=== PATIENT | female | born 1995 ===

== ENCOUNTER → 2019-05-26 | Outpatient (CLI) | payer OTHER | END | disposition home or self-care (01) | LOC: PRENATAL 10:00 | DX: O28.1 Abnormal biochemical finding on antenatal screening of mother (principal) ==

== ENCOUNTER 2019-06-07 14:20 | Outpatient (CLI) | payer OTHER | END 2019-06-07 15:30 | disposition home or self-care (01) | LOC: PRENATAL 14:20 | DX: O28.1 Abnormal biochemical finding on antenatal screening of mother (principal); Z34.02 Encounter for supervision of normal first pregnancy, second trimester ==

== ENCOUNTER 2019-09-07 12:22 | Inpatient (IN) | payer OTHER ==
[~2019-09-07] VITALS: Ht 162.6 cm; Wt 90.7 kg
[2019-09-08] MEDS ORDERED: PRENATAL TABLE1 EAC1 PO (02:29)
== END 2019-09-10 15:26 | disposition home or self-care (01) | DRG 807 ==
LOC: OBS/DEL 12:22 → LDR 09-08 02:20 → OB/GYN 09-08 02:20
PROVIDERS: ADMIT Obstetrics & Gynecology Obstetrics
PROC: 10E0XZZ Delivery of Products of Conception, External Approach (ICD-10-PCS; principal; 2019-09-08)
PROC: 0W8NXZZ Division of Female Perineum, External Approach (ICD-10-PCS; 2019-09-08)
PROC: 3E033VJ Introduction of Other Hormone into Peripheral Vein, Percutaneous Approach (ICD-10-PCS; 2019-09-08)
PROC: 4A1HXCZ Monitoring of Products of Conception, Cardiac Rate, External Approach (ICD-10-PCS; 2019-09-08)
DX: O80 Encounter for full-term uncomplicated delivery (principal); Z37.0 Single live birth; Z3A.36 36 weeks gestation of pregnancy; Z22.330 Carrier of Group B streptococcus